=== PATIENT | female | born 1960 | race Caucasian/White ===

== ENCOUNTER → 2020-03-26 09:44 | Outpatient (CLI) | payer OTHER, SELFPAY ==
--- NOTE | ~2020-03-26 | MR_ITS ---
EXAMINATION: MR cervical spine wo con DATE: 03/26/2020 10:25 INDICATION: Cervical spondylosis. TECHNIQUE: Magnetic resonance imaging (MRI) of the cervical spine was performed without intravenous c ontrast. Sequences included sagittal T2-weighted FSE, sagittal STIR FSE, sagittal T1-weighted FSE, ax ial MERGE, and axial T2-weighted FSE. COMPARISON: None FINDINGS: There is 2 mm anterolisthesis of C4 on C5 and C7 on T1. Vertebral body heights are normal. There is mildly decreased disc height at C3-C4, severely decreased disc height at C5-C6 and C6-C7, an d mildly decreased disc height at C7-T1. There is syringohydromyelia at C6 and C7 with maximum diamet er of 2 mm. The following disc levels are specifically discussed: C2-C3: The disc does not extend beyond the endplate margin. There is no uncovertebral joint osteoarth ritis. There is mild right and severe left facet joint osteoarthritis. There is mild left neural fora jaciel stenosis. There is no central canal stenosis. C3-C4: There is a left central extrusion. There is mild right and severe left uncovertebral joint ost eoarthritis. There is moderate right and severe left facet joint osteoarthritis. There is mild right and moderate left neural foraminal stenosis. There is mild central canal stenosis. C4-C5: The disc does not extend beyond the endplate margin. There is mild right and severe left uncov ertebral joint osteoarthritis. There is mild right and severe left facet joint osteoarthritis. There is moderate left neural foraminal stenosis. There is mild central canal stenosis. C5-C6: The disc is bulging with superimposed central extrusion. There is severe bilateral uncovertebr al joint osteoarthritis. There is mild right and moderate left facet joint osteoarthritis. There is m oderate right and mild left neural foraminal stenosis. There is mild central canal stenosis. C6-C7: The disc is bulging. There is severe bilateral uncovertebral joint osteoarthritis. There is mi ld bilateral facet joint osteoarthritis. There is mild right and moderate left neural foraminal steno sis. There is mild central canal stenosis. C7-T1: The disc does not extend beyond the endplate margin. There is mild bilateral uncovertebral lion nt osteoarthritis. There is moderate right and severe left facet joint osteoarthritis. There is mild left neural foraminal stenosis. There is no central canal stenosis. IMPRESSION: 1. Severe cervical spondylosis. 2. 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 Reviewed, dictated and finalized at location A. 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
== END ==
DX: M47.812 Spondylosis without myelopathy or radiculopathy, cervical region (principal)
CPT/HCPCS: 72141

== ENCOUNTER → 2020-04-09 16:32 | Outpatient (CLI) | payer OTHER, SELFPAY ==
--- NOTE | ~2020-04-09 | XR_ITS ---
EXAMINATION: XR lumbar spine 2-3V DATE: 04/09/2020 16:49 INDICATION: Lumbar spondylolisthesis TECHNIQUE: Anteroposterior and lateral views of the lumbar spine, and cone-down lateral view of the l umbosacral junction were obtained. COMPARISON: None. FINDINGS: Combined instrumented L5-S1 anterior and posterior spinal fusion with bilateral vertical rods and ped icle screws and interbody fusion device. There is approximately 2 mm residual anterolisthesis L5 on S 1. Alignment is otherwise normal. No lucency surrounding the screws to suggest loosening. Vertebral b alicia heights are normal. Multilevel mild disc height loss with mild degenerative endplate changes thro ughout the more cephalad lumbar and lower thoracic spine. Multilevel mild lumbar facet osteoarthritis . Sacroiliac joints are unremarkable. Cholecystectomy clips in right upper quadrant. Lung bases are c lear. IMPRESSION: 1. Mild lumbar and lower thoracic spondylosis with instrumented anterior and posterior spinal fusion at L5-S1. Reviewed, dictated and finalized at location A. 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 Mild lumbar and lower thoracic spondylosis with instrumented anterior and po sterior spinal fusion at L5-S1.
== END ==
DX: M43.16 Spondylolisthesis, lumbar region (principal); M47.896 Other spondylosis, lumbar region; M47.894 Other spondylosis, thoracic region; Z98.1 Arthrodesis status
CPT/HCPCS: 72100

== ENCOUNTER → 2020-12-04 09:40 | Outpatient (CLI) | payer OTHER, SELFPAY ==
--- NOTE | ~2020-12-04 | CT_ITS ---
EXAMINATION: CT lumbar spine wo con DATE: 12/04/2020 10:00 INDICATION: Lumbago. TECHNIQUE: Computed tomography (CT) of the lumbar spine was performed without intravenous contrast. A utomated exposure control and iterative reconstruction technique were employed. The dose-length produ ct was 819.19 mGy-cm. COMPARISON: Lumbar spine radiographs 04/09/2020 FINDINGS: There is 3 degrees dextrocurvature of lumbar spine. There are chronic bilateral L5 pars def ects. There is 3 mm anterolisthesis of L5 on S1. There are changes of anterior and posterior fusion p rocedures at L5-S1 with interbody devices and pedicle screws. There are hemangiomas in L3 and L5 vert ebral bodies. There is mildly decreased disc height at L4-L5. The following disc levels are specifica lly discussed: L1-L2: The disc does not extend beyond the endplate margin. There is mild bilateral facet joint osteo arthritis. There is no neural foraminal stenosis. There is no central canal stenosis. L2-L3: The disc does not extend beyond the endplate margin. There is mild bilateral facet joint osteo arthritis. There is no neural foraminal stenosis. There is no central canal stenosis. L3-L4: The disc is bulging. There is mild bilateral facet joint osteoarthritis. There is mild right n eural foraminal stenosis. There is mild central canal stenosis. L4-L5: The disc is bulging. There is moderate bilateral facet joint osteoarthritis. There is mild maxx ateral neural foraminal stenosis. There is mild central canal stenosis. L5-S1: There is mild bilateral facet joint osteoarthritis. There is mild right and moderate left neur al foraminal stenosis. There is no central canal stenosis. IMPRESSION: 1. Moderate left neural foraminal stenosis at L5-S1. Otherwise mild lumbar spondylosis. 2. Anterior and posterior fusion procedures at L5-S1. Reviewed, dictated and finalized at location A. IMPRESSION: 1. Moderate left neural foraminal stenosis at L5-S1. Otherwise mild lumbar spon dylosis. 2. Anterior and posterior fusion procedures at L5-S1.
== END ==
PROVIDERS: PCP Internal Medicine; Visit Provider Nurse Practitioner Family
DX: M48.07 Spinal stenosis, lumbosacral region (principal)
CPT/HCPCS: 72131

== ENCOUNTER 2021-01-27 10:17 | Outpatient (CLI) | payer OTHER, SELFPAY ==
--- NOTE | ~2021-01-27 | XR_ITS ---
EXAMINATION: XR abdomen/kub 1V INDICATION: Right flank pain TECHNIQUE: Supine views of the abdomen were obtained on 2 radiographs. COMPARISON: 05/27/2006 FINDINGS: Bowel contents project over the kidneys limiting sensitivity for renal stones. No urolithia sis is identified. There are changes of anterior and posterior fusion at L5-S1. Surgical clips in the right upper quadrant are likely from prior cholecystectomy. There is moderate osteoarthritis of the hips. The visualized lung bases are clear. IMPRESSION: 1. No urolithiasis identified. Reviewed, dictated and finalized at location B.
== END 2021-01-27 10:18 | disposition home or self-care (01) ==
LOC: ANHIMG 10:22
PROVIDERS: PCP Internal Medicine; Visit Provider Nurse Practitioner Adult Health
DX: M54.50 Low back pain, unspecified (principal); M16.0 Bilateral primary osteoarthritis of hip; Z98.1 Arthrodesis status
CPT/HCPCS: 74018

== ENCOUNTER 2021-01-28 14:33 | Outpatient (CLI) | payer OTHER, SELFPAY ==
--- NOTE | ~2021-01-28 | CT_ITS ---
EXAMINATION: CT abdomen pelvis wo con DATE: 01/28/2021 14:53 INDICATION: Acute flank pain TECHNIQUE: Computed tomography (CT) of the abdomen and pelvis was performed without intravenous contr ast. Automated exposure control and iterative reconstruction technique were employed. The dose-length product was 659.37 mGy-cm. COMPARISON: None FINDINGS: Mild bibasilar discoid atelectasis. Heart size is normal. Small amount of scattered atherosclerotic c oronary artery calcific location. No pericardial or pleural effusion. Bilateral breast implants. Diff use hepatic steatosis with 12 mm lesion in the right hepatic lobe demonstrating close to blood pool a ttenuation. Cholecystectomy clips the gallbladder fossa. Spleen, pancreas and bilateral adrenal gland s are normal. Kidneys and ureters are normal with no urolithiasis, hydroureteronephrosis or perinephr ic/ureteral stranding. There are few scattered colonic diverticula without adjacent inflammatory pacheco ge to suggest diverticulitis. Small bowel and appendix are normal. The uterus is not identified and h as likely been surgically resected. No free intraperitoneal gas or fluid. No pathologically enlarged abdominal or pelvic lymphadenopathy. There is calcified atherosclerosis of the aorta and many of the other arteries. Instrumented combined anterior and posterior spinal fusion at L5-S1. Lucent hemangiom a at the left side of L3. IMPRESSION: 1. Normal appendix. No urolithiasis or other acute intra-abdominal/pelvic process. 2. Diffuse hepatic steatosis with 12 mm lesion in the right hepatic lobe with blood pool attenuation. Malignancy would be unlikely in the absence of known metastatic disease or known liver disease which predispose towards malignancy. Consider further evaluation with follow-up pre and postcontrast MRI. Reviewed, dictated and finalized at location A. IMPRESSION: 1. Normal appendix. No urolithiasis or other acute intra-abdominal/pelvic proce ss. 2. Diffuse hepatic steatosis with 12 mm lesion in the right hepatic lobe with b lood pool attenuation. Malignancy would be unlikely in the absence of known met astatic disease or known liver disease which predispose towards malignancy. 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
== END 2021-01-28 14:34 | disposition home or self-care (01) ==
LOC: ANHIMG 14:35
PROVIDERS: PCP Internal Medicine; Visit Provider Urology
DX: R10.9 Unspecified abdominal pain (principal); K76.0 Fatty (change of) liver, not elsewhere classified
CPT/HCPCS: 74176

== ENCOUNTER 2021-01-30 09:58 | Outpatient (CLI) | payer OTHER, SELFPAY ==
--- NOTE | ~2021-01-30 | MR_ITS ---
. EXAMINATION: MR lumbar spine wo con DATE: 01/30/2021 10:44 INDICATION: Lumbar radiculopathy. Fibromyalgia. TECHNIQUE: Magnetic resonance imaging (MRI) of the lumbar spine was performed without intravenous con trast. Sequences included sagittal T2-weighted FSE, sagittal STIR FSE, sagittal T1-weighted FSE, and axial T2-weighted FSE. COMPARISON: CT lumbar spine 12/04/2020 FINDINGS: There is 3 mm anterolisthesis of L5 on S1. There is a hemangioma in L3 vertebral body. Ther e are changes of anterior and posterior fusion procedures at L5-S1 with interbody device and pedicle screws. Vertebral body heights are normal. There is mildly decreased disc height at L4-L5. The distal spinal cord signal intensity is normal. The conus medullaris is at L1. The following disc levels are specifically discussed: L1-L2: The disc does not extend beyond the endplate margin. There is mild bilateral facet joint osteo arthritis. There is no neural foraminal stenosis. There is no central canal stenosis. L2-L3: The disc does not extend beyond the endplate margin. There is mild bilateral facet joint osteo arthritis. There is no neural foraminal stenosis. There is no central canal stenosis. L3-L4: The disc is bulging. There is mild bilateral facet joint osteoarthritis. There is mild bilater al neural foraminal stenosis. There is mild central canal stenosis. L4-L5: The disc is bulging. There is moderate bilateral facet joint hypertrophy. There is mild bilate ral neural foraminal stenosis. There is mild central canal stenosis. L5-S1: There is mild right and moderate left facet joint hypertrophy. There is mild bilateral neural foraminal stenosis. There is no central canal stenosis. IMPRESSION: 1. Mild lumbar spondylosis. 2. Anterior and posterior fusion procedures at L5-S1. Reviewed, dictated and finalized at location A. T ABSTRACTOR
== END 2021-01-30 09:59 | disposition home or self-care (01) ==
PROVIDERS: PCP Internal Medicine; Visit Provider Internal Medicine
DX: M54.16 Radiculopathy, lumbar region (principal); M79.7 Fibromyalgia; M47.816 Spondylosis without myelopathy or radiculopathy, lumbar region; Z98.1 Arthrodesis status
CPT/HCPCS: 72148

== ENCOUNTER 2021-12-15 08:58 | Outpatient (CLI) | payer OTHER, SELFPAY ==
--- NOTE | ~2021-12-15 | MM_ITS ---
EXAMINATION: MM scrn myrtle implant BI w alyson HISTORY: Screening mammogram TECHNIQUE: Craniocaudal and mediolateral oblique 3-D tomosynthesis images with implant displacement a nd synthetic 2-D images were generated. Craniocaudal and mediolateral oblique views of the breasts wi thout implant displacement were obtained using full field digital mammography. CAD analysis was submi tted and interpreted. COMPARISON: 07/09/2008, 07/27/2005 BREAST PARENCHYMAL COMPOSITION: There are scattered areas of fibroglandular density. FINDINGS: There is no evidence of suspicious mass, calcification, or architectural distortion to sugg est malignancy in either breast. There has been no suspicious interval change. IMPRESSION: 1. No mammographic evidence of malignancy. 2. Recommend routine screening mammography in one year. BI-RADS Category 1: Negative Reviewed, dictated and finalized at location D.
== END 2021-12-15 08:59 | disposition home or self-care (01) ==
PROVIDERS: PCP Internal Medicine; Visit Provider Surgery Plastic and Reconstructive Surgery
DX: Z12.31 Encounter for screening mammogram for malignant neoplasm of breast (principal)
CPT/HCPCS: 77063; 77067

== ENCOUNTER 2022-02-07 14:15 | Outpatient (RCR) | payer MEDICARE, OTHER, SELFPAY ==
--- NOTE | 2022-02-02 15:41 | PTOPEVAL1 ---
Assessment and note entered by Donna Tang, PT, DPT Evaluation Information Assessment Status Evaluation Diagnosis L TKA Onset 01/04/22 Subjective Information s/p L TKA on 01/04/22. Pt has completed home health prior to current outpatient eval. Reports excellent compliance with her HEP. 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 Pt states she is still icing after therapy. She reports her back pain is worse than her knee pain. Reported Pain Level Pain Score 5: Self Report Assessment PT Clinical Summary Parisa presents to therapy today for her initial evaluation s/p L TKA on 01/04/22. Today she demonstrates active knee flexion to 85 deg and passive to 95 deg, she has full extension ROM. She ambulates with a single point cane, a mild antalgic gait, and a decreased gait speed. She also ambulates stairs with a non-reciprocal pattern. Skilled physical therapy services are indicated to improve ROM, improve strength, to improve gait, to improve functional mobility, and to return to baseline function. Pt will complete 3-4 visits of skilled therapy as she moves to [place] on 02/21/22. Plan of Care Interventions Electrical Stimulation,Gait Training,Hot Pack/Cold Pack,Manual Therapy,Neuro Re-education,Patient/ Caregiver Educati,Therapeutic Activities, Therapeutic Exercise PT Services Indicated Yes Treatment Frequency and 2x/wk for 2 wks Duration These treatments will address the objective and functional deficits as defined above. The patient will be advanced safely and appropriately in order for the patient to progress towards his/her prior level of function. Additional exercises will be introduced and as well as a comprehensive home exercise program upon discharge, if needed, ?to ensure carryover of functional gains achieved in the clinic. This treatment plan has been reviewed and agreement upon by the patient.
--- NOTE | 2022-02-10 16:33 | PCPTNOTE ---
Patient called & cancelled scheduled appointment this date due to not having a back machine
--- NOTE | 2022-03-29 09:59 | PTOPDC ---
Assessment and note entered by Donna Tang, PT, DPT Evaluation Information Assessment Status Discharge - Pt Not Present Diagnosis L TKA Onset 01/04/22 Subjective Information Patient and called all of her remaining appointment d/t the facility not having a back machine . Assessment PT Clinical Summary Parisa has evaluated on 02/02/22, returned for a treatment on 02/07/22 and has not been back since. She will be discharged from our facility at this time. Plan of Care Treatment Frequency and discharge Duration
== END 2022-03-30 15:45 | disposition home or self-care (01) ==
LOC: ANHGOSHPT 14:15
PROVIDERS: PCP Internal Medicine
DX: Z47.1 Aftercare following joint replacement surgery (principal); Z96.652 Presence of left artificial knee joint
CPT/HCPCS: 97110; 97112; 97140; 97161

== ENCOUNTER 2022-07-10 12:40 | Emergency (ER) | payer MEDICARE, SELFPAY ==
[2022-07-10 13:51] LABS: Basophils Percent Auto 0.8 % (0.2-1.2); Eosinophils Percent Auto 0.8 % (0-4.4); Hematocrit 43.7 % (37.0-47.0); Immature Granulocyte Absolute 0.02 K/mm3 (0.00-0.031); Immature Granulocyte Percent A 0.4 % (0-0.5); Immature Platelet Fraction Pct 2.5 % (0.9-11.2); Lymphocytes Percent Auto 55.2 % (18.3-44.2); Mean Corpuscular Hemoglobin 32.4 pg (26-34); Mean Corpuscular Volume 101.2 fl (80-100); Mean Platelet Volume 9.3 fl (7.4-10.4); Monocytes Absolute Auto 0.5 K/mm3 (0.1-0.6); Monocytes Percent Auto 9.8 % (2.6-8.5); Neutrophils Absolute Auto 1.6 K/mm3 (1.3-6.7); Platelet Count Result 298 k/mm3 (150-375); Red Blood Count 4.32 M/mm3 (4.2-5.4); Red Cell Distribution Width 13.3 % (11.5-14.5); White Blood Count 4.7 K/mm3 (4.5-10.0)
[2022-07-10 13:54] LABS: Appearance Urine Cloudy (Clear); Bacteria Urine Rare /hpf; Bilirubin Urine Negative (Negative); Blood Urine Negative (Negative); Color Urine Yellow (Yellow); Glucose Urine UA Negative (Negative); Ketones Urine Negative (Negative); Leukocyte Esterase Ur Negative LEU/UL (Negative); Nitrate Urine Negative (Negative); Non Pathogenic Casts 0-2; Protein Urine Negative (Negative); Specific Grav Ur 1.016 (1.001-1.035); Squamous Epithelial Cell Urine Moderate /hpf (Few); WBC Urine 0-5 /hpf; pH Urine 8.5 (5.0-9.0)
[2022-07-10 14:08] VITALS: BP 141/76; PULSE 58; RESP 18; O2SAT 96
[2022-07-10 14:09] LABS: Add Urine Microscopic? YES
[2022-07-10 14:25] LABS: Alanine Aminotransferase 145 U/L (6-35); Albumin Level 5.3 g/dL (3.5-5.1); Alkaline Phosphatase 63 U/L (38-126); Anion Gap 11 mmol/L (8-16); Aspartate Amino Transferase 63 U/L (14-36); Bilirubin,Total 0.8 mg/dL (0.2-1.3); Blood Urea Nitrogen 13 mg/dL (7-17); Calcium 9.6 mg/dL (8.4-10.2); Carbon Dioxide 23 mmol/L (22-30); Chloride 106 mmol/L (98-107); Estimated CRCL calculation 79 ml/min; Estimated Glomerular Filt Rate > 60; Glucose 125 mg/dL (65-110); Lipase 98 U/L (23-300); Potassium 4.5 mmol/L (3.4-5.0); Sodium 140 mmol/L (137-145)
[2022-07-10] MEDS: ONDANSETRON INJ 4 MG/2 ML VIAL IV PUSH (14:30)
[2022-07-10] MEDS: SODIUM CHLORIDE 0.9% IV 1,000 ML 999 ML IV CONT (14:30)
[2022-07-10] MEDS: MECLIZINE HCL 25 MG TABLET PO (14:30)
[2022-07-10 15:14] VITALS: BP 151/86; PULSE 56; RESP 18; O2SAT 98
--- NOTE | 2022-07-10 17:12 | ED.NAVMDI ---
HPI - Nausea/Vomiting/Diarrhea General Chief complaint: Nausea/Vomiting/Diarrhea Stated complaint: nausea/dizziness/abd pain Time Seen by Provider: 07/10/22 13:54 History of Present Illness HPI Narrative: Patient is a 62-year-old female who presents to the ER with nausea and vomiting. She reports this associated with spinning dizziness has been going on for last couple weeks. Worse with any sort of movement to her head. Patient also reports around the time this started she was in her shower and hit her head on the wall but had no loss of consciousness. Did not have sudden onset dizziness with this. Patient has history of multiple concussions throughout her life. She is on no blood thinners. She has no headache at this time. No fevers or chills or sweats. She has some abdominal discomfort related to her vomiting. No diarrhea. Related Data Home Medications Medication Instructions Recorded Confirmed gabapentin 100 mg capsule 100 mg PO TID 01/06/20 07/27/21 tramadol 50 mg tablet 50 mg PO Q6H PRN 01/06/20 07/27/21 duloxetine 20 mg capsule,delayed 20 mg PO BID 07/27/21 07/27/21 release (Cymbalta) hydroxychloroquine 200 mg tablet 200 mg PO BID 07/27/21 07/27/21 upadacitinib 15 mg tablet,extended 15 mg PO DAILY 07/27/21 07/27/21 release 24 hr (Rinvoq) Saccharomyces boulardii [Daily PO 10/05/21 Probiotic (S. boulardii)] ascorbic acid (vitamin C) 250 mg 250 mg PO DAILY 10/05/21 tablet biotin PO 10/05/21 calcium acetate PO 10/05/21 cholecalciferol (vitamin D3) 125 125 mcg PO DAILY 10/05/21 mcg (5,000 unit) capsule coenzyme Q10 [Ultra CoQ10] PO 10/05/21 cyclobenzaprine 10 mg tablet 10 mg PO TID 10/05/21 flax seed PO 10/05/21 folic acid 400 mcg tablet 0.4 mg PO DAILY 10/05/21 juice plus PO 10/05/21 mecobalamin (vitamin B12) PO 10/05/21 omega-3 fatty acids [Fish Oil] PO 10/05/21 oxycodone PO 10/05/21 trazodone 50 mg tablet 50 mg PO QHS PRN 10/05/21 Allergies Allergy/AdvReac Type Severity Reaction Status Date / Time latex Allergy Unknown REDNESS Verified 07/10/22 12:41 Sulfa (Sulfonamide Allergy Unknown Nausea Verified 07/10/22 12:41 Antibiotics) adhesive tape AdvReac Unknown Rash Verified 07/10/22 12:41 codeine AdvReac Unknown Nausea and Verified 07/10/22 12:41 Vomiting methotrexate AdvReac Nausea Verified 07/10/22 12:41 leflunomide AdvReac Unknown Rash Uncoded 07/10/22 12:41 sulfasalazine AdvReac Unknown Rash Uncoded 07/10/22 12:41 Review of Systems Review of Systems: All systems reviewed & are unremarkable except as noted in HPI and below Constitutional: Constitutional: Denies chills, Denies fatigue and Denies fever(s) ENT: Reports vertigo, Denies nasal congestion and Denies sore throat Cardiovascular: Cardiovascular: Denies chest pain, Denies rapid heart rate and Denies radiating jaw, neck or arm pain Respiratory: Respiratory: Denies cough and Denies dyspnea Gastrointestinal: Gastrointestinal: Denies abdominal pain, Reports nausea and Reports vomiting PMFSH Past Medical History Medical History Fibromyalgia Osteoarthritis of left knee Osteoarthritis of right knee Rheumatoid arthritis Rheumatoid arthritis involving both knees Surgical History Surgical History History of (~1977) History of (~1981) History of cholecystectomy (~2009) History of hernia repair (~1982) History of left knee surgery (~2011) History of lumbar fusion (~2019) Family History Family History Sibling Cancer Social History Social History Smoking status: Current every day smoker Tobacco type: smokeless tobacco Alcohol intake: current Living arrangements: with family Occupation/Education: retired Gender identity (if verbalized by the patient): Female Exam [employer]
[2022-07-10 17:32] VITALS: BP 138/65; PULSE 58; RESP 11; O2SAT 96
== END 2022-07-10 17:45 | disposition home or self-care (01) ==
PROVIDERS: Emergency Provider Emergency Medicine; PCP Internal Medicine
DX: R42 Dizziness and giddiness (principal); M79.7 Fibromyalgia; M06.9 Rheumatoid arthritis, unspecified
CPT/HCPCS: 36415; 80053; 81001; 83690; 85025; 85055; 96361; 96374; 99284; A9270; J2405; J7030

== ENCOUNTER 2022-07-15 09:38 | Outpatient (CLI) | payer OTHER, SELFPAY ==
--- NOTE | 2022-07-15 09:52 | ECG_ITS ---
Measurements Intervals [place] Rate: 74 P: 47 TX: 182 QRS: 22 QRSD: 86 T: 60 QT: 394 QTc: 439 Interpretive Statements SINUS RHYTHM POOR R-WAVE PROGRESSION NONSPECIFIC T-WAVE ABNORMALITY ABNORMAL ECG COMPARED TO ECG 10/18/2018 23:05:12 HEART RATE IS DECREASED Electronically Signed On 07-15-2022 15:32:38 CDT by Darren Koch M.D.
== END 2022-07-15 09:39 | disposition home or self-care (01) ==
PROVIDERS: PCP Internal Medicine; Visit Provider Surgery Plastic and Reconstructive Surgery
DX: Z41.1 Encounter for cosmetic surgery (principal); Z01.818 Encounter for other preprocedural examination
CPT/HCPCS: 93005

== ENCOUNTER 2022-07-19 00:55 | Day surgery (SDC) | payer OTHER, SELFPAY ==
[2022-07-12 13:21] VITALS: BMI 34.5
--- NOTE | 2022-07-12 13:33 | PC.NURSE ---
Report to the Outpatient Waiting Room, entrance under the green pavilion located off [facility], at time 6:00 on date 07/19/22. Planned Procedure Time: 7:30. Time changes happen often and if your time is changed the preop area will call you the afternoon before. - You and your visitor will be asked to self-screen and do not enter if you have any COVID symptoms. - A mask is optional within the hospital at this time. Patients may have clear liquids (water, carbonated beverages, clear teas, apple juice) until 3 hours prior to surgery (4:30) with a maximum of 20 ounces. - No food from midnight until time of surgery Take the following medications with a SIP of water the morning of surgery: GABAPENTIN, DULOXETINE, OXYCODONE OR TRAMADOL IF NEEDED DO NOT STOP ANY OF YOUR OTHER PRESCRIPTION MEDICATIONS PRIOR TO SURGERY EXCEPT THE FOLLOWING Medications to discontinue per physician: VITAMINS/SUPPLEMENTS Date to take last dose: 07/15/22 (OR PER DR. DIXON) Please no make-up, nail venezuelan, hairspray, perfume, deodorant, or body powder the day of surgery. No jewelry (including any body piercings) or valuables the day of surgery, leave them at home. Please take a shower or bath the night before, or the morning of, surgery with an antibacterial soap. Wear comfortable, loose fitting clothing. - Jewelry must be removed prior to entering the operating room. Rings and piercings that are not removed may be cut off. - The hospital will not accept responsibility for valuables. - Please leave all valuables, including medications, at home the day of surgery. If you are going home after surgery, a licensed electric pile driver operator must drive you home. - NO public transportation without another adult if you receive anesthesia. - We recommend that an adult stay with you for 24 hours following discharge. - We also recommend that you do not drive, make important decision, drink alcoholic beverages, or take any drugs that were not prescribed by your health care provider for at least 24 hours after your discharge time. Follow any additional instructions given to you from your surgeon. If you or anyone in your household have experienced Covid symptoms in the past week, please notify your surgeon or the nurse liaison at the phone number below for possible testing. Telephone instructions given to PT - TOMY MARTINEZ and asked if any additional questions and then verbalized understanding. Patient advised to call surgeon office or pre surgery nurse liaison [phone] if any additional questions.
[2022-07-19] VITALS (12 sets, daily range): BP systolic 108–137; BP diastolic 54–84; PULSE 74–108; RESP 10–20; TEMP 36.4–36.6; O2SAT 95–98
--- NOTE | 2022-07-19 06:37 | WPDANESEPPF ---
Anes - Initial Pre Proc Eval Procedure: Operation Date: 07/19/22 07:30 Proposed Procedures p Removal Bilateral Breast Implants with Capsulectomy, - Tony Gonsalez MD s Bilateral Breast Mastopexy, - MD destiny Kirby Liposuction of Bilateral Lateral Breasts - MD destiny Kirby Bilateral Upper and Lower Blepharoplasty - MD destiny Kirby Facial Fat Grafting - Tony Gonsalez MD Date/Time: 07/19/22 06:37 Surgeon: Tony Gonsalez MD Pre Op Diagnosis: breast ptosis, hx breast augmentation Patient Data Age: 62 Gender: F Height: 1.52 m Weight: 80.3 kg Allergies Allergy/AdvReac Type Severity Reaction Status Date / Time latex Allergy Unknown REDNESS Verified 07/12/22 13:17 Sulfa (Sulfonamide Allergy Unknown Nausea Verified 07/12/22 13:17 Antibiotics) nickel Allergy Other Verified 07/12/22 13:18 adhesive tape AdvReac Unknown Rash Verified 07/12/22 13:17 codeine AdvReac Unknown Nausea and Verified 07/12/22 13:17 Vomiting methotrexate AdvReac Nausea Verified 07/12/22 13:17 leflunomide AdvReac Unknown Rash Uncoded 07/12/22 13:17 sulfasalazine AdvReac Unknown Rash Uncoded 07/12/22 13:17 Home Medications Medication Instructions Recorded Confirmed Type gabapentin 100 mg capsule 100 mg PO TID 01/06/20 07/12/22 History tramadol 50 mg tablet 50 mg PO Q6H PRN Pain 01/06/20 07/12/22 History upadacitinib 15 mg tablet,extended 15 mg PO DAILY 07/27/21 07/12/22 History release 24 hr (Rinvoq) ascorbic acid (vitamin C) 250 mg 250 mg PO DAILY 10/05/21 07/12/22 History tablet cholecalciferol (vitamin D3) 125 125 mcg PO DAILY 10/05/21 07/12/22 History mcg (5,000 unit) capsule cyclobenzaprine 10 mg tablet 10 mg PO TID 10/05/21 07/12/22 History folic acid 400 mcg tablet 0.4 mg PO DAILY 10/05/21 07/12/22 History trazodone 50 mg tablet 50 mg PO QHS PRN Insomnia 10/05/21 07/12/22 History meclizine 12.5 mg tablet 12.5 mg PO TID PRN motion sickness 07/10/22 07/12/22 Rx #20 tabs promethazine 25 mg tablet 25 mg PO Q6H PRN nausea and 07/10/22 07/12/22 Rx vomiting #12 tabs Bacillus coagulans 10 billion cell 10 cell PO DAILY 07/12/22 07/12/22 History capsule,delayed release (Probiotic (B. coagulans)) biotin 800 mcg tablet 800 mcg PO DAILY 07/12/22 07/12/22 History calcium carbonate 500 mg calcium 500 mg PO DAILY 07/12/22 07/12/22 History (1,250 mg) tablet coenzyme Q10 30 mg capsule 30 mg PO DAILY 07/12/22 07/12/22 History docosahexaenoic acid (dha)-epa 120 1 cap PO DAILY 07/12/22 07/12/22 History mg-180 mg capsule (Fish Oil) flaxseed 1 ea PO DAILY 07/12/22 07/12/22 History nutritional supplement-fiber oral 1 ea PO DAILY 07/12/22 07/12/22 History liquid oxycodone-acetaminophen 10 mg-325 1 tablet PO Q8H PRN Pain 07/12/22 07/12/22 History mg tablet Patient hx anesthesia problems: post op nausea/vomiting Family hx anesthesia problems: none Results Review: All pre-operative results and documents have been reviewed as part of the pre-operative evaluation. [facility] Past Medical History Medical History (Updated 07/19/22 @ 06:39 by Liu Dobbins DO) Fibromyalgia History of lung cancer Osteoarthritis of left knee Osteoarthritis of right knee Rheumatoid arthritis Rheumatoid arthritis involving both knees Surgical History Surgical History (Updated 07/19/22 @ 06:39 by Liu Dobbins DO) History of (~1977) History of (~1981) History of cholecystectomy (~2009) History of hernia repair (~1982) History of left knee surgery (~2011) History of lobectomy of lung History of lumbar fusion (~2019) Family History Family History Sibling Cancer Social History Social History Smoking packs per day: 1 Smoking cigarettes per day: 20.0 Years smoked: 30 Smoking pack-years: 30.00 Smoking status: Former smoker Tobacco type: ciga
[2022-07-19] MEDS: LACTATED RINGERS 1,000 ML 30 ML IV CONT ×2 (07:00→11:27)
--- NOTE | 2022-07-19 07:44 | P.HPUP_ITS ---
History and Physical Update Update Date/Time: 07/19/22 07:44 Since her pre-op visit she has had vertigo and had a workup completed. Improving. Understands risks and would like to proceed. This AM she was unable to provide urine and stated she had not used tobacco for 5 years; however, this AM admits she did Vape with nicotine last evening. We had an extensive lengthy conversation about the risks of nicotine in relation to overall health and risks for procedures involved. We outlined each procedure and the risks unique to that in great detail. Offered to reschedule at no charge. After an lengthy conversation her and her would like to proceed with: * Removal bilateral breast implants with capsulectomy. * Bilateral upper and lower blepharoplasty with fat grafting. * She will NOT proceed with bilateral breast mastopexy and liposuction of lateral breast, rather do that as a staged procedure at a later date (understanding there will likely be additional cost). Again, risks, benefits, and alternatives have been discussed and questions answered. Patient agrees to proceed with procedure.
[2022-07-19] MEDS: SCOPOLAMINE 1.5 MG PATCH TRANSDERM (07:45)
--- NOTE | 2022-07-19 07:50 | W.PM.PROC2 ---
Procedure Note - Detailed Date of Procedure 07/19/22 Pre-op Diagnosis bilateral breast ptosis, hx breast augmentation bilateral dermatochalasis (upper and lower) Post-op Diagnosis Same Procedure Performed Bilateral breast implant removal with capsulectomy Bilateral upper eyelid blepharoplasty Bilateral lower eyelid transconjunctival blepharoplasty Fat grafting lower eyelids (face) Surgeon Tony Gonsalez MD Anesthesia General Findings Previous Implants: Bilateral [place] 400cc Smooth. Right intact, left ruptured. Capsule: No seroma. No masses. No worrisome features. Fat graftincc total volume (4cc per side lower lid / zygoma) Description of Procedure See H&P update for procedure changes. Preoperatively risks, benefits, alternatives were discussed in extensive detail. I want them to be very realistic about the risks involved as well as expectations. Discussed what we can and cannot improved. Limitations of this procedure. Alternative procedure as well as adjuvant procedures. This was a lengthy open-ended conversation discussing realistic expectations of outcome. Answered all of their questions to their satisfaction. Consent obtained. She was marked in the pre-operatively holding area with her verification. Upper lids we completed a pinch test to ensure no risk of lagophthalmos following the procedure. She verified all the markings. She was taken to the operating room placed supine on the operating room table. Anesthesia provided by anesthesiology. She was prepped and draped in the standard sterile fashion. Surgical time-out was taken. Fat harvest A thorough abdominal exam was completed. 14 gauge needle unused to make a stab incision at umbilicus. Tumesced with a tumescent solution. One adequate time for hemostasis suction lipectomy was completed with 3mm multi hole fat grafting cannula to a MicroAire gravity separation device. This was low volume. Breast 1% lidocaine and 0.25% Marcaine with epinephrine was used to provide a field block. Fifteen blade used to excise along previous scar. Dissection was continued down to the capsules identified it is an elevated above the capsule for majority of the capsule. At this point the implant and significant capsule were removed. Capsule sent to pathology. Findings as above. I copiously irrigated with 3 L of saline solution on TUR tubing. Verified strict hemostasis. I closed with 2-0 Vicryl followed by 3-0 Stratafix in running subcuticular 4-0 Monocryl and tissue glue. Eyes We re-prepped in a standard sterile fashion. 1% lidocaine and 0.25% Marcaine with epinephrine was used anesthetize locally with low volume of local to protect from distortion of structures. Eyes were irrigated with BSS. Tetracaine eyedrops placed. Corneal protectors also placed. I excised a skin flap of the upper lid as planned. Then incised and entered medial and middle fat compartments. I only removed what was obvious excess. Verified a strict hemostasis. Closed with 5-0 prolene running subcuticular and 5-0 plain gut as needed. Prolene secured with steri strips. Needle-tip cautery was used to incise just inferior to the tarsus and a transconjunctival lower lid blepharoplasty technique. The conjunctiva was retracted with a 5-0 nylon. I elevated in a preseptal fashion down to the level of the rim. At this point I entered the nasal, middle, and lateral compartments and removed only what was clearly excess adiposity. I verified strict hemostasis throughout. I verified that the inferior oblique was protected during this procedure. With gentle pressure on the globe I verified the contour the lower lids. Both lids proceeded in the same manner. Fat grafting The fat was converted to microfat using a step down system from 2.4 to 1.2 in size. Using a 0.8mm cannula through 18 guage stab sites the fat was infiltrated in two seperate directions with care taken to protect the lid during t
[2022-07-19] MEDS: BUPivacaine HCL 0.25% PF 30 ML VIAL INFILTRATE (07:59)
[2022-07-19] MEDS: ceFAZolin 2 GM/D5W 50 ML 2 GM/50 ML BAG IVPB (07:59)
[2022-07-19] MEDS: LACTATED RINGERS IRRIG 1,000 ML, LIDOCAINE HCL 1% LOCAL INJ 50 ML, EPINEPHrine HCL INJ ... INFILTRATE (07:59)
[2022-07-19] MEDS: LIDO 1%/EPINEPHRINE 1:100,000 50 ML VIAL 30 ML INFILTRATE (07:59)
[2022-07-19] MEDS: TRANEXAMIC ACID 1,000MG/ISO100 1,000 MG/100 ML BAG 200 MG IVPB (08:16)
[2022-07-19] MEDS: fentaNYL CITRATE INJ (*CRX) 100 MCG/2 ML VIAL 25 MCG IV PUSH ×7 (11:34→12:45)
[2022-07-19] MEDS: ONDANSETRON INJ 4 MG/2 ML VIAL IV PUSH (13:41)
[2022-07-19] MEDS: oxyCODONE HCL (*CRX) 5 MG TAB IR PO (13:41)
[2022-07-19] MEDS: KETOROLAC 15 MG/ML VIAL (*BKC) IV PUSH (14:28)
== END 2022-07-19 15:10 | disposition home or self-care (01) ==
PROVIDERS: PCP Internal Medicine; Visit Provider Surgery Plastic and Reconstructive Surgery
PROC: 0HPT0JZ Removal of Synthetic Substitute from Right Breast, Open Approach (ICD-10-PCS; CPT 19371; principal; 2022-07-19 07:30)
PROC: (CPT 19371; 2022-07-19 07:30)
PROC: (CPT 15769; 2022-07-19 07:30)
DX: Z41.1 Encounter for cosmetic surgery (principal); N64.81 Ptosis of breast; T85.43XA Leakage of breast prosthesis and implant, initial encounter; H02.835 Dermatochalasis of left lower eyelid; H02.834 Dermatochalasis of left upper eyelid; H02.831 Dermatochalasis of right upper eyelid; H02.832 Dermatochalasis of right lower eyelid; Y83.8 Other surgical procedures as the cause of abnormal reaction of the patient, or of later complication, without mention of misadventure at the time of the procedure; M06.9 Rheumatoid arthritis, unspecified; M79.7 Fibromyalgia; Z85.118 Personal history of other malignant neoplasm of bronchus and lung; Z87.891 Personal history of nicotine dependence; E66.9 Obesity, unspecified; Z68.33 Body mass index [BMI] 33.0-33.9, adult
CPT/HCPCS: 19371; 19325; 15822; 15820; 15773; 88304; A9270; J0171; J0690; J1100; J1170; J1885; J2250; J2405; J2704; J2710; J3010; J7030; J7120

== ENCOUNTER 2022-08-25 09:15 | Outpatient (CLI) | payer MEDICARE, SELFPAY ==
--- NOTE | ~2022-08-25 | MR_ITS ---
MRI of the lumbar spine Clinical History: Radiculopathy Technique: Axial T2-weighted images, and sagittal T1-weighted, T2-weighted, and T2 fat-sat images wer e acquired. COMPARISON: 01/30/2021 Findings: There is posterior fusion hardware from L5 to S1, with bilateral rods and transpedicular sc rews, as well as interbody fusion device at the L5-S1 disc space. No acute fracture seen. Osseous ali gnment is unchanged. No suspicious bone marrow signal abnormality seen. At L1-L2, L2-L3, L3-L4, there is no significant disc bulge or herniation. There are moderate to advan aimee facet joint degenerative changes at these levels. No spinal canal stenosis or neural foraminal na rrowing at these levels. At L4-L5, there is mild diffuse disc bulge and moderate to advanced facet arthropathy. No cristine centr al canal stenosis. There is mild right neural foraminal narrowing. Left neural foramen preserved. At L5-S1, there is facet arthropathy, left worse than right, without cristine central canal stenosis or neural foraminal narrowing. Paravertebral soft tissues are unremarkable. Impression: Stable postoperative change at L5-S1, as detailed above. Mild degenerative spondylitic changes, as above. Reviewed, dictated and finalized at location . Impression: Stable postoperative change at L5-S1, as detailed above. Mild degenerative spondylitic changes, as above.
== END 2022-08-25 09:16 | disposition home or self-care (01) ==
PROVIDERS: PCP Internal Medicine
DX: M54.14 Radiculopathy, thoracic region (principal); Z98.1 Arthrodesis status
CPT/HCPCS: 72148

== ENCOUNTER → 2022-10-13 09:07 | Outpatient (CLI) | payer MEDICARE, SELFPAY ==
--- NOTE | ~2022-10-13 | US_ITS ---
Limited Abdominal Sonogram: Real-time sonographic imaging of the right upper quadrant was performed. Clinical History: Intra-abdominal swelling or mass Findings: The liver appears echogenic, with no evidence of mass lesion or bile duct dilatation. Main portal vein demonstrates normal direction of flow. The gallbladder is absent, compatible prior david cystectomy. The common bile duct measures 5 mm. The visualized pancreas, aorta, and IVC are unremark able. Impression: Probable diffuse fatty infiltration of liver. Status post cholecystectomy. Reviewed, dictated and finalized at location . Impression: Probable diffuse fatty infiltration of liver. Status post cholecystectomy.
== END ==
PROVIDERS: PCP Internal Medicine; Visit Provider Internal Medicine
DX: K76.0 Fatty (change of) liver, not elsewhere classified (principal); R19.00 Intra-abdominal and pelvic swelling, mass and lump, unspecified site; Z90.49 Acquired absence of other specified parts of digestive tract
CPT/HCPCS: 76705

== ENCOUNTER 2022-12-20 09:27 | Outpatient (CLI) | payer MEDICARE, SELFPAY ==
--- NOTE | 2022-12-20 11:30 | NEURO_ITS ---
Impression: # Complains of muscle spasms. History of left knee arthroplasty. # Left ulnar neuropathy across the elbow. # Normal needle/EMG exam without evidence of neurogenic changes, myopathic patterns or myotonia. # Clinical correlation recommended. Nerve Conduction Studies Anti Sensory Summary Table Stim Site NR Peak (ms) P-T Amp (?V) Site1 Site2 Delta-P (ms) Dist (cm) Jerry (m/s) Left Median Anti Sensory (2-3nd Digit) Wrist 2.7 84.6 Wrist 2-3nd Digit 2.7 14.0 52 Wrist 2.8 55.6 Wrist 2-3nd Digit 2.7 14.0 52 Right Median Anti Sensory (2-3nd Digit) Wrist 2.7 52.7 Wrist 2-3nd Digit 2.7 14.0 52 Wrist 2.5 77.6 Wrist 2-3nd Digit 2.7 14.0 52 Left Radial Anti Sensory (Base 1st Digit) Wrist 1.9 37.3 Wrist Base 1st Digit 1.9 0.0 Right Radial Anti Sensory (Base 1st Digit) Wrist 1.9 31.3 Wrist Base 1st Digit 1.9 0.0 Left Sup Fibular Anti Sensory (Ant Lat Mall) 14 cm 3.2 8.5 14 cm Ant Lat Mall 3.2 16.0 50 Right Sup Fibular Anti Sensory (Ant Lat Mall) 14 cm 3.0 14.6 14 cm Ant Lat Mall 3.0 16.0 53 Left Sural Anti Sensory (Lat Mall) Calf 3.4 18.6 Calf Lat Mall 3.4 16.0 47 Right Sural Anti Sensory (Lat Mall) Calf 3.3 13.9 Calf Lat Mall 3.3 16.0 48 Left Ulnar Anti Sensory (5th Digit) Wrist 2.8 48.8 Wrist 5th Digit 2.8 14.0 50 Right Ulnar Anti Sensory (5th Digit) Wrist 2.6 39.5 Wrist 5th Digit 2.6 14.0 54 Motor Summary Table Stim Site NR Onset (ms) O-P Amp (mV) Site1 Site2 Delta-0 (ms) Dist (cm) Jerry (m/s) Left Median Motor (Abd Poll Brev) Wrist 2.6 2.8 Elbow Wrist 4.3 25.0 58 Elbow 6.9 4.7 Right Median Motor (Abd Poll Brev) Wrist 2.8 12.6 Elbow Wrist 4.6 26.0 57 Elbow 7.4 8.9 Left Peroneal Motor (Vastus Med) Ankle 3.8 4.2 Popit Ankle 7.7 39.0 51 Popit 11.5 3.4 Right Peroneal Motor (Vastus Med) Ankle 4.0 6.6 Popit Ankle 6.9 35.0 51 Popit 10.9 5.6 Left Tibial Motor (Abd Rios Brev) Ankle 4.0 12.0 Knee Ankle 7.9 43.0 54 Knee 11.9 8.9 Right Tibial Motor (Abd Rios Brev) Ankle 4.2 13.1 Knee Ankle 7.8 39.0 50 Knee 12.0 5.7 Left Ulnar Motor (Abd Dig Minimi) Wrist 2.2 8.5 A Elbow Wrist 5.9 25.0 42 A Elbow 8.1 7.2 B Elbow Wrist 3.4 18.0 53 B Elbow 5.6 4.6 Right Ulnar Motor (Abd Dig Minimi) Wrist 2.6 9.4 A Elbow Wrist 4.6 27.0 59 A Elbow 7.2 6.3 F Wave Studies NR F-Lat (ms) L-R F-Lat (ms) Left Median (Mrkrs) (Abd Poll Brev) 26.39 0.47 Right Median (Mrkrs) (Abd Poll Brev) 25.93 0.47 Left Peroneal (Mrkrs) (EDB) 47.66 0.00 Right Peroneal (Mrkrs) (EDB) 47.66 0.00 Left Tibial (Mrkrs) (Abd Hallucis) 47.66 0.94 Right Tibial (Mrkrs) (Abd Hallucis) 46.72 0.94 Left Ulnar (Mrkrs) (Abd Dig Min) 25.37 0.76 Right Ulnar (Mrkrs) (Abd Dig Min) 24.60 0.76 EMG Side Muscle Nerve Root Ins Act Fibs Amp Dur Recrt Comment Right 1stDorInt Ulnar C8-T1 Nml Nml Nml Nml Nml Right Ext Indicis Radial (Post Int) C7-8 Nml Nml Nml Nml Nml Right Ext Digitorum Radial (Post Int) C7-8 Nml Nml Nml Nml Nml Right BrachioRad Radial C5-6 Nml Nml Nml Nml Nml Right PronatorTeres Median C6-7 Nml Nml Nml Nml Nml Right Abd Poll Brev Median C8-T1 N
== END 2022-12-20 09:28 | disposition home or self-care (01) ==
LOC: ANHNEURO 09:28
PROVIDERS: PCP Internal Medicine; Visit Provider Internal Medicine
DX: M62.838 Other muscle spasm (principal); G56.22 Lesion of ulnar nerve, left upper limb
CPT/HCPCS: 95886; 95913

== ENCOUNTER 2023-01-19 08:50 | Outpatient (CLI) | payer OTHER, SELFPAY ==
[2023-01-19 09:05] LABS: Hematocrit 37.4 % (37.0-47.0); Hemoglobin 11.9 g/dL (12.0-15.0)
== END 2023-01-19 08:51 | disposition home or self-care (01) ==
LOC: ANHSURGERY 08:52
PROVIDERS: Anesthesiology; PCP Internal Medicine; Visit Provider Surgery Plastic and Reconstructive Surgery
DX: Z01.818 Encounter for other preprocedural examination (principal); N64.81 Ptosis of breast
CPT/HCPCS: 36415; 85014; 85018

== ENCOUNTER 2023-01-25 03:53 | Emergency (ER) | payer MEDICARE, SELFPAY ==
[2023-01-25] VITALS (10 sets, daily range): BP systolic 123–150; BP diastolic 64–104; PULSE 68–104; RESP 13–18; TEMP 37.1–37.3; O2SAT 94–97
--- NOTE | 2023-01-25 04:37 | ED.GENADULT ---
HPI - General Adult General Chief complaint: Upper Respiratory Infection Stated complaint: my head is going to explode , multiple complaints Time Seen by Provider: 01/25/23 04:22 History of Present Illness HPI narrative: This is a 62-year-old female with a history of fibromyalgia and chronic pain presenting with flu-like symptoms for 1 week. Patient has been having headaches, body aches, intermittent fevers. No chest pain shortness of breath nausea vomiting or diarrhea. patient has been taking her typical home medications of oxycodone without relief of her symptoms. Her is also sick at home with the same symptoms although not nearly as severe. The goal of today's visit is pain control. Patient has been seen at an urgent care and treated with Z-Pa and had negative COVID and flu test. Related Data Home Medications Medication Instructions Recorded Confirmed gabapentin 100 mg capsule 100 mg PO TID 01/06/20 01/16/23 tramadol 50 mg tablet 50 mg PO Q6H PRN Pain 01/06/20 01/16/23 upadacitinib 15 mg tablet,extended 15 mg PO DAILY 07/27/21 01/16/23 release 24 hr (Rinvoq) ascorbic acid (vitamin C) 250 mg 250 mg PO DAILY 10/05/21 01/16/23 tablet cholecalciferol (vitamin D3) 125 125 mcg PO DAILY 10/05/21 01/16/23 mcg (5,000 unit) capsule cyclobenzaprine 10 mg tablet 10 mg PO HS 10/05/21 01/16/23 trazodone 50 mg tablet 50 mg PO QHS PRN Insomnia 10/05/21 01/16/23 Bacillus coagulans 10 billion cell 10 cell PO DAILY 07/12/22 01/16/23 capsule,delayed release (Probiotic (B. coagulans)) biotin 800 mcg tablet 800 mcg PO DAILY 07/12/22 01/16/23 calcium carbonate 500 mg calcium 500 mg PO DAILY 07/12/22 01/16/23 (1,250 mg) tablet coenzyme Q10 30 mg capsule 30 mg PO DAILY 07/12/22 01/16/23 docosahexaenoic acid (dha)-epa 120 1 cap PO DAILY 07/12/22 01/16/23 mg-180 mg capsule (Fish Oil) flaxseed 1 ea PO DAILY 07/12/22 01/16/23 nutritional supplement-fiber oral 1 ea PO DAILY 07/12/22 01/16/23 liquid oxycodone-acetaminophen 10 mg-325 1 tablet PO Q8H PRN Pain 07/12/22 01/16/23 mg tablet Allergies Allergy/AdvReac Type Severity Reaction Status Date / Time latex Allergy Unknown REDNESS Verified 07/19/22 07:12 leflunomide Allergy Unknown Rash Verified 07/19/22 07:14 sulfasalazine Allergy Unknown Rash Verified 07/19/22 07:14 nickel Allergy Other Verified 07/19/22 07:12 adhesive tape AdvReac Unknown Rash Verified 07/19/22 07:12 codeine AdvReac Unknown Nausea and Verified 07/19/22 07:12 Vomiting Sulfa (Sulfonamide AdvReac Unknown Nausea Verified 07/19/22 07:14 Antibiotics) methotrexate AdvReac Nausea Verified 07/19/22 07:12 PMFSH Past Medical History Medical History Fibromyalgia History of lung cancer Osteoarthritis of left knee Osteoarthritis of right knee Rheumatoid arthritis Rheumatoid arthritis involving both knees Surgical History Surgical History History of (~1977) History of (~1981) History of cholecystectomy (~2009) History of hernia repair (~1982) History of left knee surgery (~2011) History of lobectomy of lung History of lumbar fusion (~2019) Family History Family History Sibling Cancer Social History Social History Smoking packs per day: 1 Smoking cigarettes per day: 20.0 Years smoked: 30 Smoking pack-years: 30.00 Smoking status: Former smoker Tobacco type: cigarettes Smoking end date: 03/27/17 Alcohol intake: current Alcohol use details: 4/YEAR Substance use: never Substance use type: does not use Living arrangements: with family Occupation/Education: retired Gender identity (if verbalized by the patient): Female Spiritual care concerns: No Exam Narrative: APPEARANCE: patient is rolling back and forth on
[2023-01-25] MEDS: ACETAMINOPHEN 500 MG TABLET 1000 MG PO (04:52)
[2023-01-25] MEDS: diphenhydrAMINE HCl INJ 50 MG/ML VIAL 25 MG IV PUSH (04:53)
[2023-01-25] MEDS: oxyCODONE HCL (*CRX) 5 MG TAB IR 10 MG PO (04:53)
[2023-01-25] MEDS: PROCHLORPERAZINE EDISYLATE 10 MG/2 ML VIAL IM (04:53)
[2023-01-25] MEDS: KETOROLAC 15 MG/ML VIAL (*BKC) IV PUSH (05:03)
== END 2023-01-25 06:16 | disposition home or self-care (01) ==
PROVIDERS: Emergency Provider Emergency Medicine; PCP Internal Medicine
DX: B34.9 Viral infection, unspecified (principal); G89.29 Other chronic pain; M79.7 Fibromyalgia; M17.0 Bilateral primary osteoarthritis of knee; M06.9 Rheumatoid arthritis, unspecified; Z85.118 Personal history of other malignant neoplasm of bronchus and lung; Z87.891 Personal history of nicotine dependence; Z98.1 Arthrodesis status; Z90.49 Acquired absence of other specified parts of digestive tract; Z90.2 Acquired absence of lung [part of]
CPT/HCPCS: 96372; 96374; 96375; 99284; A9270; J0780; J1200; J1885

== ENCOUNTER 2023-07-13 15:41 | Outpatient (CLI) | payer MEDICARE, SELFPAY ==
--- NOTE | ~2023-07-13 | XR_ITS ---
EXAMINATION: XR wrist LT min 3V DATE: 07/13/2023 15:59 INDICATION: Left wrist fracture post fall 3 days prior TECHNIQUE: Posteroanterior, oblique, and lateral views of the left wrist were obtained. COMPARISON: none FINDINGS: Fiberglas casting material about the left wrist which obscures fine bone and soft tissue detail. Nond isplaced intra-articular fracture with subtle cortical discontinuity along the volar margin of the sc aphoid fossa of the distal left radius. Alignment remains near-anatomic with no appreciable significa nt fracture gap or incongruity. No other fractures identified. Moderate to severe osteoarthritis at t he first carpometacarpal joint. Mild osteoarthritis at the left first metacarpophalangeal joint. IMPRESSION: 1. Nondisplaced intra-articular fracture of the distal left radius. Reviewed, dictated and finalized at location A.
== END 2023-07-13 15:42 | disposition home or self-care (01) ==
PROVIDERS: PCP Internal Medicine; Visit Provider Orthopaedic Surgery
DX: S52.572A Other intraarticular fracture of lower end of left radius, initial encounter for closed fracture (principal)
CPT/HCPCS: 73110

== ENCOUNTER 2023-07-25 12:57 | Outpatient (CLI) | payer MEDICARE, SELFPAY ==
--- NOTE | ~2023-07-25 | MM_ITS ---
EXAMINATION: MM screening [facility] BI w alyson HISTORY: Screening mammogram TECHNIQUE: Craniocaudal and mediolateral oblique 3-D tomosynthesis images were obtained and synthetic 2-D images were generated. CAD analysis was submitted and interpreted. COMPARISON: No prior mammogram is available for comparison at this institution. BREAST PARENCHYMAL COMPOSITION: FINDINGS: There is an approximately 5 mm irregular opacity at mid depth in the inner aspect of the mi d outer left breast (best demonstrated on CC tomosynthesis image /. Otherwise there is no evidence of suspicious mass, calcification, or architectural distortion to sugg est malignancy elsewhere in either breast. There has been no other suspicious interval change. IMPRESSION: 1. 5 irregular mass in the aspect of the mid outer left breast 2. Diagnostic left mammogram and left breast ultrasound are recommended. BI-RADS Category 0: Incomplete: Needs additional imaging evaluation. Reviewed, dictated and finalized at location A.
== END 2023-07-25 12:58 | disposition home or self-care (01) ==
PROVIDERS: PCP Internal Medicine; Visit Provider Surgery Plastic and Reconstructive Surgery
DX: Z12.31 Encounter for screening mammogram for malignant neoplasm of breast (principal); R92.8 Other abnormal and inconclusive findings on diagnostic imaging of breast
CPT/HCPCS: 77063; 77067

== ENCOUNTER 2023-07-28 08:48 | Outpatient (CLI) | payer MEDICARE, SELFPAY ==
--- NOTE | ~2023-07-28 | MMUS_ITS ---
EXAMINATION: MM diagnostic myrtle LT w alyson, US breast LT limited HISTORY: 5 mm irregular mass suggested in the inner aspect of the mid outer left breast on July 25, 2023 screening mammogram TECHNIQUE: Additional ML, compression MLO and CC and rolled medial and lateral CC 3-D tomosynthesis i mages of the left breast were performed and synthetic 2-D images were generated. CAD analysis was sub mitted and interpreted. High resolution limited left breast ultrasound from 11:00 to 7:00 was perform ed. COMPARISON: July 25, 2023 bilateral screening mammogram FINDINGS: MAMMOGRAPHIC FINDINGS: Due to definite reproducible suspicious masses detected. ULTRASOUND: There is a prominent duct at 4:00 which may account for the mammographic finding on the screening myrtle mogram. No suspicious mass or suspicious shadowing is detected. IMPRESSION: 1. No evidence of malignancy 2. Routine annual mammographic screening is recommended BI-RADS Category 1: Negative Reviewed, dictated and finalized at location A. IMPRESSION: 1. No evidence of malignancy 2. Routine annual mammographic screening is recommended BI-RADS Category 1: Negative
== END 2023-07-28 08:49 | disposition home or self-care (01) ==
LOC: CHSIMG 08:50
PROVIDERS: PCP Internal Medicine; Visit Provider Surgery Plastic and Reconstructive Surgery
DX: R92.8 Other abnormal and inconclusive findings on diagnostic imaging of breast (principal)
CPT/HCPCS: 76642; 77061; 77065; G0279

== ENCOUNTER 2023-08-16 09:15 | Outpatient (CLI) | payer MEDICARE, SELFPAY ==
--- NOTE | ~2023-08-16 | XR_ITS ---
XR wrist LT w scaphoid DATE: 08/16/2023 09:39 INDICATION: Intra-articular fracture of distal radius TECHNIQUE: 4 views COMPARISON: July 13, 2023 and July 26, 2023 left wrist FINDINGS: There is evidence of some mild periosteal new bone formation at the minimally displaced art icular fracture of the distal radius. No significant change in position or alignment is noted. Prominent osteoarthritic change of the first carpometacarpal joint. IMPRESSION: Healing minimally displaced intra-articular fracture of distal radius Reviewed, dictated and finalized at location B. IMPRESSION: Healing minimally displaced intra-articular fracture of distal radi us
--- NOTE | ~2023-08-16 | XR_ITS ---
XR elbow LT min 3V DATE: 08/16/2023 09:39 INDICATION: Left elbow pain after injury in June TECHNIQUE: 4 views COMPARISON: None FINDINGS: There is mild spurring of the coronoid process of the proximal ulna. No fracture or dislocation or joint effusion. No periosteal reaction or bone destruction. IMPRESSION: No fracture or dislocation or joint effusion Reviewed, dictated and finalized at location B.
== END 2023-08-16 09:16 | disposition home or self-care (01) ==
PROVIDERS: PCP Internal Medicine; Visit Provider Orthopaedic Surgery
DX: S52.572D Other intraarticular fracture of lower end of left radius, subsequent encounter for closed fracture with routine healing (principal); M25.722 Osteophyte, left elbow; X58.XXXD Exposure to other specified factors, subsequent encounter
CPT/HCPCS: 73080; 73110

== ENCOUNTER 2023-08-18 12:09 | Outpatient (CLI) | payer MEDICARE, SELFPAY ==
--- NOTE | ~2023-08-18 | MR_ITS ---
MRI of the left shoulder Technique: Axial proton-density fat-sat images, coronal proton density fat-sat and T2 fat-sat images, and sagittal T1-weighted and T2 fat-sat images were acquired. Clinical History: Pain Findings: There is moderate AC joint degenerative change. Coracoclavicular, coracoacromial, and corac ohumeral ligaments are intact. There is complete, full-thickness tear involving the entire supraspinatus tendon, with fluid-filled g ap measuring approximately 2.5 x 2.4 cm in extent. Infraspinatus tendon is intact, without definite p artial or full-thickness tear. There is moderate tendinosis. Subscapularis tendon is intact with mode rate to advanced tendinosis. Tendon of long head of the biceps is intact, with intra-articular tendin osis. No definite labral tear seen. Inferior glenohumeral ligament is intact. There is small to moderate glenohumeral joint effusion, wit h fluid passing through the rotator cuff defect into the subacromial/subdeltoid bursa. There is addit ional fluid distention of the subscapularis recess. No muscle atrophy or edema. Minimal degenerative change of the glenohumeral joint noted. Impression: Complete, full-thickness tear of the supraspinatus tendon, as detailed above. Diffuse background moderate rotator cuff tendinosis, as above. Moderate AC joint degenerative change. Reviewed, dictated and finalized at [facility]. Impression: Complete, full-thickness tear of the supraspinatus tendon, as detailed above. Diffuse background moderate rotator cuff tendinosis, as above. Moderate AC joint degenerative change.
== END 2023-08-18 12:10 ==
LOC: GOSHIMG 12:11
PROVIDERS: PCP Internal Medicine; Visit Provider Orthopaedic Surgery
DX: M75.122 Complete rotator cuff tear or rupture of left shoulder, not specified as traumatic (principal); M75.32 Calcific tendinitis of left shoulder; M19.012 Primary osteoarthritis, left shoulder
CPT/HCPCS: 73221

== ENCOUNTER 2024-02-16 09:08 | Outpatient (CLI) | payer MEDICARE, SELFPAY ==
--- NOTE | ~2024-02-16 | XR_ITS ---
EXAMINATION: XR hip LT min 2V DATE: 02/16/2024 09:59 INDICATION: Low back pain. TECHNIQUE: 2 views of left hip were obtained. COMPARISON: Pelvis and left hip radiographs 08/12/2020 FINDINGS: Alignment is normal. There are changes of anterior and posterior fusion procedures at L5-S1 . No fracture. There is mild left hip osteoarthritis. IMPRESSION: 1. Mild left hip osteoarthritis. Reviewed, dictated and finalized at location A. [employer]
--- NOTE | ~2024-02-16 | US_ITS ---
EXAMINATION: US venous doppler [facility] DATE: 02/16/2024 09:56 INDICATION: Lower limb pain and swelling TECHNIQUE: Grayscale ultrasound images without and with compression and Doppler ultrasound images of the left lower extremity veins were obtained. COMPARISON: None. FINDINGS: The visualized portions of left common femoral vein, profunda (deep) femoral vein, femoral vein, popl iteal vein, peroneal veins, posterior tibial veins, gastrocnemius vein and greater saphenous vein out flow are patent. IMPRESSION: 1. No deep venous thrombosis in the left lower limb. Reviewed, dictated and finalized at location B. [employer]
== END 2024-02-16 09:09 | disposition home or self-care (01) ==
PROVIDERS: PCP Internal Medicine; Visit Provider Internal Medicine
DX: M16.12 Unilateral primary osteoarthritis, left hip (principal); R60.0 Localized edema
CPT/HCPCS: 73502; 93971